=== PATIENT | female | born 1965 | race Caucasian/White ===

== ENCOUNTER 2016-08-30 08:05 | Emergency (ER) | payer OTHER ==
[~2016-08-30] VITALS: Ht 154.9 cm; Wt 74.4 kg
[~2016-08-30 08:05] MED LIST: ADVAIR 250-501 EACH INH; AVELOX400 M1 PO; AVELOX400 MG PO; CEPHALEXIN500 MG PO; CIPRO 500MG (E500 MG PO; CLEOCIN HCL300 M1 PO; DICYCLOMINE HCL10 MG PO; FEMHRT 0.5 MG-1 EACH PO; FLAG500 PO; FLEXERIL10 MG PO; HYDROCHLOROTHIA25 M1 PO; MONTELUKAST SOD10 M1 PO; MOXIFLOXACIN H400 M1 PO; NASONEX17 GM NASB; NORCO 325 MG-51 TAB PO; PANTOPRAZOLE SO40 M1 PO; PERCOCET 5-3251 EACH PO; PROBIOTIC FORMU1 CAP PO; TYLENOL TAB 32325 MG PO; VALACYCLOVIR500 M1 PO; VICODIN5-300 PO; ZOFRAN4 M1 SL
[2016-08-30 08:24] VITALS: BP 122/81
--- NOTE | 2016-08-30 08:42 | ED UPPER/LOWER EXTREMITY COMPL ---
History of Present Illness General Chief Complaint: Upper Extremity Problem Stated Complaint: RT ARM PAIN MO INJURY Source: patient, old records Exam Limitations: no limitations Vital Signs & Intake/Output Vital Signs & Intake/Output Vital Signs Date Time Temp Pulse Resp B/P Pulse O2 O2 Flow FiO2 Ox Delivery Rate 08/30 0847 98 08/30 0824 99.0 67 18 122/81 99 Room Air Allergies Coded Allergies: Penicillins (Severe, FACIAL SWELLING AND HIVES 08/30/16) ciprofloxacin (From Cipro) (Severe, BLISTERS IN MOUTH 08/30/16) metronidazole (Severe, BLISTERS IN MOUTH 08/30/16) nut - unspecified (Severe, LARYNGEAL EDEMA 08/30/16) peanut (Severe, ANAPHYLAXIS 08/30/16) amoxicillin (From Augmentin) (FACIAL SWELLING, HIVES 08/30/16) clavulanic acid (From Augmentin) (FACIAL SWELLING, HIVES 08/30/16) Reconcile Medications Fluticasone/Salmeterol (Advair 250-50 Diskus) 250 MCG-50 MCG/DOSE BLST.W.DEV 1 PUF INH BID ASTHMA (Reported) Hydrochlorothiazide 25 MG TABLET 1 TAB PO DAILY BP (Reported) Lactobacillus Acidophilus (Probiotic) 10 BILLION CELL CAPSULE 1 CAP PO DAILY DIVERTICULITIS (Reported) Methylprednisolone. (Medrol) 4 MG TAB.DS.PK 1 DP PO AD RADICULOPATHY 6 on day 1 then reduce by one tablet daily until gone Mometasone Furoate (Nasonex) 50 MCG SPRAY.PUMP 2 SPRAY NASB DAILY ALLERGIES ( Reported) Montelukast Sodium 10 MG TABLET 1 TAB PO DAILY ALLERGIES (Reported) Norethindrone AC-Eth Estradiol (Femhrt 0.5 MG-2.5 Mcg Tablet) 0.5 MG-2.5 MCG TABLET 1 TAB PO DAILY BC (Reported) Pantoprazole Sodium 40 MG TABLET.DR 1 TAB PO DAILY ACID REFLUX (Reported) Valacyclovir HCl (Valacyclovir) 500 MG TABLET 1 TAB PO Q48 HERPES (Reported) Triage Note: TRIAGE: PT TO ER C/C PINS/NEEDLE/NUMBING TO RT HAND WITH PAIN THAT SHOOTS UP TO UPPER ARM. ONSET LAST WEEK. CONSTANT SINCE ONSET THOUGH WAXES/WANES IN INTENSITY. NO KNOWN INJURY OR RECENT AGGRAVATING FACTOR, STATES SHE FELL ON THE ARM A YEAR AGO. TRIED NAPROXYN WITH NO RELIEF AND THEN WAS GIVEN TRAMADOL BY AT [facility] ON TUESDAY BUT DID NOT START TAKING IT UNTIL YESTERDAY BECAUSE "I WAS WORRIED ABOUT TAKING IT". HAS ONLY HAD TWO DOSES, LAST DOSE YESTERDAY AT 10 PM. STATES "IT DIDN'T HELP AT FIRST BUT EVENTUALLY IT DID HELP". STATES SHE WOKE UP WITH THE PAIN AGAIN THIS MORNING BUT INSTEAD OF TAKING ANOTHER DOSE OF THE MEDICATION CAME TO THE ER FOR EVAL. Triage Nurses Notes Reviewed? yes Onset: Gradual Duration: day(s): (5), constant, waxing and waning Timing: recent history Severity: mild Severity Numbers: 3 Pain/Injury Location: Right: Arm. Method of Injury: unknown No Modifying Factors: none Associated Symptoms: TINGLING HPI: 51-year-old female presents emergency room complaining of paresthesia to the right arm that began in her hand 5 days ago and has been radiating up into her right shoulder since then. She states she saw her primary care physician when the symptoms began as prescribed tramadol which she did not start taking until yesterday because she was scared of this medicine. She states she took 2 pills with relief of her symptoms. SHe states he symptoms recur at times-randomly. There is no radiation of pain into her back or neck no chest pain shortness of breath or pain with inspiration she denies any swelling to her arm. She is right-hand dominant. She is not taken anything for symptoms today. No history of similar episodes in the past she denies any left arm or bilateral leg symptoms. No rashes to her skin. No weakness in arm. Past History Travel History Traveled to [place] past 21 day No Medical History Any Pertinent Medical History? 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 No Review of Systems Review of Systems Constitutional: Reports: see HPI. All Other Systems: Reviewed and Negative Comments Review of systems: See HPI, All other systems negative. Constitutional, no chills no fever, no malaise HEENT: No visual changes no sore throat no congestion Cardiovascular: No chest pain , no palpitation Skin, no rashes, no change in skin Respiratory: No dyspnea no cough no sputum GI: No nausea no vomiting, no diarrhea : No dysuria Muscle skeletal: No joint pain, no back pain, no neck pain, Neurologic: No numbness no headache Psych: No stress Heme/endocrine: No bruising no bleeding Immunology: No lymphadenopathy Physical Exam Physical Exam General Appearance: well developed/nourished, no apparent distress, alert, awake Comments: Well-developed well-nourished patient in no apparent distress. HEENT: Atraumatic, extraocular motion intact Neck: Supple, FROM, Nontender Back: FROM Cardiovascular: Regular rate and rhythms no murmurs rubs or gallops, Respiratory: Chest nontender.There were no bony deformities, no asymmetry. No respiratory distress. Patient speaking in full complete sentences. Breath sounds clear to auscultation bilaterally: NO W/R/R Shoulder: Atraumatic/Stable. FROM . Elbow: Atraumatic/stable. FROM. No laxity Upper arm/Forearm: Atraumatic. Nontender. No edema, 5 out of 5 web application dev specialist strength noted to bilateral upper extremities Hand/Wrist: Atraumatic/stable. Skin intact. FROM Pulses: Normal/equal radial pulses bilaterally. Brisk cap refill Lower Extremities: full range of motion Neuro: Alert and oriented x3 Skin: Warm & dry;No appreciable rash on exposed skin Psych: Mood affect normal, normal memory normal judgment. Progress Differential Diagnosis: arterial insufficiency, cellulitis, contusion, DVT, sprain, tendon injury, NERVE IMPINGEMENT, SHINGLES Plan of Care: Patient clinically appears well, 5 out of 5 strength in upper extremities normal radial and brachial pulses, there is no swelling to the extremities. Advise close follow-up with her primary care physician, tramadol has helped with pain we'll treat patient with prednisone, I discussed with her need for postoperative primary care this week. I answered all her questions I had an extensive conversation regarding need for close follow up with their primary care physician this week as well as return precautions. I answered all of their questions, they feel comfortable with the plan and follow-up care. I discussed the medications that they will receive with the patient. I gave them signs and symptoms that could indicate an adverse reaction. I have advised them to limit their activities until they can see how they respond to the medication. Departure Departure Time of Disposition: 852 Disposition: HOME OR SELF CARE Condition: Stable Clinical Impression Primary Impression: Arm paresthesia, right Referrals: RYLAN MARINA APRN (PCP/Family) Additional Instructions: FOLLOW UP WITH YOUR PMD LATER THIS WEEK- CONTINUE TAKING THE TRAMADOL YOU HAVE FOR PAIN. MEDROL DOSE SHANE DISCUSSSED. THIS WAS SENT TO [facility]. HEATING PAD NEEDED. RETURN WITH ANY CONCERNS Departure Forms: Customer Survey General Discharge Information Prescriptions: Current Visit Scripts Methylprednisolone. (Medrol) 1 DP PO AD #1 DP 6 on day 1 then reduce by one tablet daily until gone Additional Instructions: FOLLOW UP WITH YOUR PMD LATER THIS WEEK- CONTINUE TAKING THE TRAMADOL YOU HAVE FOR PAIN. MEDROL DOSE SHANE DISCUSSSED. THIS WAS SENT TO [facility]. HEATING PAD NEEDED. RETURN WITH ANY CONCERNS Departure Forms: Customer Survey General Discharge Information Prescriptions: Current Visit Scripts Methylprednisolone. (Medrol) 1 DP PO AD #1 DP 6 on day 1 then reduce by one tablet daily until gone
[2016-08-30] MEDS ORDERED: PROBIOTIC1 EACH PO (08:54)
[2016-08-30] MEDS ORDERED: MEDROL4 M2 PO (08:57)
== END 2016-08-30 08:58 ==
LOC: ERH 08:05
DX: R20.2 Paresthesia of skin (principal)

== ENCOUNTER 2016-09-23 17:23 | Emergency (ER) | payer OTHER ==
[~2016-09-23] VITALS: Ht 154.9 cm; Wt 74.8 kg
[~2016-09-23 17:23] MED LIST changes: +MEDROL4 M2 PO; +PROBIOTIC1 EACH PO
[2016-09-23 17:31] VITALS: BP 142/88
--- NOTE | 2016-09-23 18:07 | ED HAND/WRIST INJURY COMPLAINT ---
History of Present Illness General Chief Complaint: Upper Extremity Injury Stated Complaint: RT ARM PAIN Source: patient Exam Limitations: no limitations Vital Signs & Intake/Output Vital Signs & Intake/Output Vital Signs Date Time Temp Pulse Resp B/P B/P Pulse O2 O2 Flow FiO2 Mean Ox Delivery Rate 09/23 1742 97 Room Air Room Air 09/23 1731 97.6 79 16 142/88 98 Room Air Allergies Coded Allergies: Penicillins (Severe, FACIAL SWELLING AND HIVES 08/30/16) ciprofloxacin (From Cipro) (Severe, BLISTERS IN MOUTH 08/30/16) metronidazole (Severe, BLISTERS IN MOUTH 08/30/16) nut - unspecified (Severe, LARYNGEAL EDEMA 08/30/16) peanut (Severe, ANAPHYLAXIS 08/30/16) amoxicillin (From Augmentin) (FACIAL SWELLING, HIVES 08/30/16) clavulanic acid (From Augmentin) (FACIAL SWELLING, HIVES 08/30/16) Reconcile Medications Fluticasone/Salmeterol (Advair 250-50 Diskus) 250 MCG-50 MCG/DOSE BLST.W.DEV 1 PUF INH BID ASTHMA (Reported) Hydrochlorothiazide 25 MG TABLET 1 TAB PO DAILY BP (Reported) Hydrocodone/Acetaminophen (Hydrocodon-Acetaminophen 5-325) 5 MG-325 MG TABLET 1-2 TAB PO Q4-6 PRN PRN pain Lactobacillus Acidophilus (Probiotic) 10 BILLION CELL CAPSULE 1 CAP PO DAILY DIVERTICULITIS (Reported) Methylprednisolone. (Medrol) 4 MG TAB.DS.PK 1 DP PO AD RADICULOPATHY 6 on day 1 then reduce by one tablet daily until gone Mometasone Furoate (Nasonex) 50 MCG SPRAY.PUMP 2 SPRAY NASB DAILY ALLERGIES ( Reported) Montelukast Sodium 10 MG TABLET 1 TAB PO DAILY ALLERGIES (Reported) Norethindrone AC-Eth Estradiol (Femhrt 0.5 MG-2.5 Mcg Tablet) 0.5 MG-2.5 MCG TABLET 1 TAB PO DAILY BC (Reported) Pantoprazole Sodium 40 MG TABLET.DR 1 TAB PO DAILY ACID REFLUX (Reported) Valacyclovir HCl (Valacyclovir) 500 MG TABLET 1 TAB PO Q48 HERPES (Reported) Triage Note: PT STATES SHE HAS A PINCHED NERVE IN HER RIGHT ARM INTO HER SHOULDER. PT REPORTS THIS HAS BEEN SINCE August AND WAS TAKING TRAMADOL AND NABUMETONE BUT PT STATES THE PAIN IS GETTING WORSE AND KEEPING HER UP AT NIGHT. Triage Nurses Notes Reviewed? yes Duration: week(s): (4), constant, getting worse Timing: recent history Severity: moderate, severe Pain/Injury Location: Right: Wrist, Hand. Method of Injury: unknown No Modifying Factors: none HPI: 51-year-old female comes into emergency room with complaints of right wrist pain and hand pain has been going on for the past month. Pain is sharp. Continuous. Patient has numbness and tingling to secondary to fourth fingers. Patient reports pain at the base of the second and third finger especially. Pain will shoot up into wrist and into elbow. Patient was seen here a month ago and prescribed steroids. Patient has been taking anti-inflammatories at home with minimal relief. Denies any falls or trauma. Denies any other associated symptoms. Past History Travel History Traveled to [place] past 21 day No Medical History Any Pertinent Medical History? 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 No Review of Systems Review of Systems Constitutional: Reports: no symptoms. EENTM: Reports: no symptoms. Respiratory: Reports: no symptoms. Cardiovascular: Reports: no symptoms. GI: Reports: no symptoms. Genitourinary: Reports: no symptoms. Musculoskeletal: Reports: see HPI. Skin: Reports: no symptoms. Neurological/Psychological: Reports: no symptoms. Hematologic/Endocrine: Reports: no symptoms. Immunologic/Allergic: Reports: no symptoms. All Other Systems: Reviewed and Negative Physical Exam Physical Exam General Appearance: well developed/nourished, mild distress Head: atraumatic Eyes: Bilateral: normal appearance, EOMI. Ears, Nose, Throat: normal ENT inspection, hearing grossly normal Neck: normal inspection, supple Cardiovascular/Respiratory: no respiratory distress Back: normal inspection Hand Left: normal inspection Hand Right: FOR RANGE OF MOTION, RADIAL PULSE 2+, GROSS SENSATION INTACT, PAIN OVER HER SECOND AND THIRD METACARPALS, POSITVE TINNELS SIGN Neurologic/Tendon: normal sensation, normal motor functions, normal tendon functions, responds to pain, no evidence tendon injury, no pulse deficit Skin: intact, normal color, warm/dry Lymphatic: no anterior cervical janett Progress Differential Diagnosis: cellulitis, dislocation, fracture, septic arthritis, sprain, tenosynovitis, CARPAL TUNNEL, Dupuytren s contracture Plan of Care: Orders Procedure Date/time Status Durable Medical Equipment 09/24 1811 Active Departure Departure Disposition: HOME OR SELF CARE Condition: Stable Clinical Impression Primary Impression: Wrist pain, right Referrals: RYLAN MARINA APRN (PCP/Family) DEANNA WEBSTER,MAE Additional Instructions: Use wrist splint. Take Vicodin for pain. Follow-up with plastic surgeon provided. Return if any concerns worsening symptoms. Please go over all results of today's visit with your primary care doctor. Contact your primary care doctor to let them know you were here in the emergency room. There may be nonspecific findings which may not be related to your visit today here in the emergency room but may require further evaluation and chronic monitoring by your primary care doctor. If you had a laceration today the chance of foreign body always remains. You should follow-up with your primary care doctor for recheck in 3-5 days for a wound check. If you had an x-ray done there is a chance that a fracture could have been missed on initial read and you should follow-up with your primary care doctor for repeat x-rays if symptoms persist. If your blood pressure was elevated here in the emergency room please have rechecked by her primary care doctor within the next 48 hours by your primary care doctor. If you were prescribed a narcotic here in the emergency room or any type of controlled substances you're not allowed to drive while taking this medication or operate any type of heavy machinery. Narcotics can make you feel lightheaded dizziness nausea and can cause constipation. You may need to pick and shovel worker a stool softener. Thank you for choosing [facility] emergency room. Please return to the emergency room immediately if you have any other concerns worsening of symptoms. Departure Forms: Customer Survey General Discharge Information Prescriptions: Current Visit Scripts Hydrocodone/Acetaminophen (Hydrocodon-Acetaminophen 5-325) 1-2 TAB PO Q4-6 PRN PRN pain #15 TAB Procedures Splinting Location: RIGHT WRIST Manual Alignment Performed: No Pre-Made Type: velcro Splint: wrist Splint Applied By: splint applied by me Pre-Proc Neuro Vasc Exam: normal Post-Proc Neuro Vasc Exam: normal
[2016-09-23] MEDS ORDERED: HYDROCODON-ACE1 EAC2 PO (18:11)
== END 2016-09-23 18:40 ==
LOC: ERH 17:23
DX: M25.531 Pain in right wrist (principal)

== ENCOUNTER 2017-10-02 20:03 | Emergency (ER) | payer OTHER ==
[~2017-10-02] VITALS: Ht 154.9 cm; Wt 74.8 kg
[~2017-10-02 20:03] MED LIST changes: +HYDROCODON-ACE1 EAC2 PO
--- NOTE | 2017-10-02 21:19 | RADIOLOGY REPORT ---
EXAMINATION: XR ANKLE, RIGHT CLINICAL INFORMATION: Right ankle pain. COMPARISON: Right ankle radiographs 10/28/2012. TECHNIQUE: AP, lateral, and mortise views of the right ankle. FINDINGS: No fracture or malalignment. No joint effusion. Small marginal osteophytes of the tibiotalar joint with a stable lucency of the medial talar dome measuring up to 5 to 6 mm suggestive of degenerative change or a small OCD. Minimal dorsal spurring of the navicular. No soft tissue abnormality. IMPRESSION: No acute osseous finding of the right ankle. Unchanged subchondral lucency of the medial talar dome suggestive of a small OCD. Mild degenerative arthritis of the ankle.
--- NOTE | 2017-10-02 21:43 | ED ANKLE/FOOT INJURY COMPLAINT ---
History of Present Illness General Chief Complaint: Lower Extremity Injury Stated Complaint: "RT ANKLE SWOLLEN, PAINFUL" Source: patient Exam Limitations: no limitations Vital Signs & Intake/Output Vital Signs & Intake/Output Vital Signs Date Time Temp Pulse Resp B/P B/P Pulse O2 O2 Flow FiO2 Mean Ox Delivery Rate 10/02 2144 98.2 88 18 120/72 97 Room Air 10/02 2009 98.1 90 18 115/77 97 Room Air ED Intake and Output 10/03 0000 10/02 1200 Intake Total 0 Output Total Balance 0 Intake, Oral 0 Patient 165 lb Weight Weight Reported by Patient Measurement Method Allergies Coded Allergies: Penicillins (Severe, FACIAL SWELLING AND HIVES 08/30/16) ciprofloxacin (From Cipro) (Severe, BLISTERS IN MOUTH 08/30/16) metronidazole (Severe, BLISTERS IN MOUTH 08/30/16) nut - unspecified (Severe, LARYNGEAL EDEMA 08/30/16) peanut (Severe, ANAPHYLAXIS 08/30/16) amoxicillin (From Augmentin) (FACIAL SWELLING, HIVES 08/30/16) clavulanic acid (From Augmentin) (FACIAL SWELLING, HIVES 08/30/16) Reconcile Medications Fluticasone/Salmeterol (Advair 250-50 Diskus) 250 MCG-50 MCG/DOSE BLST.W.DEV 1 PUF INH BID ASTHMA (Reported) Hydrochlorothiazide 25 MG TABLET 1 TAB PO DAILY BP (Reported) Hydrocodone/Acetaminophen (Hydrocodon-Acetaminophen 5-325) 5 MG-325 MG TABLET 1-2 TAB PO Q4-6 PRN PRN pain Lactobacillus Acidophilus (Probiotic) 10 BILLION CELL CAPSULE 1 CAP PO DAILY DIVERTICULITIS (Reported) Methylprednisolone. (Medrol) 4 MG TAB.DS.PK 1 DP PO AD RADICULOPATHY 6 on day 1 then reduce by one tablet daily until gone Mometasone Furoate (Nasonex) 50 MCG SPRAY.PUMP 2 SPRAY NASB DAILY ALLERGIES ( Reported) Montelukast Sodium 10 MG TABLET 1 TAB PO DAILY ALLERGIES (Reported) Norethindrone AC-Eth Estradiol (Femhrt 0.5 MG-2.5 Mcg Tablet) 0.5 MG-2.5 MCG TABLET 1 TAB PO DAILY BC (Reported) Pantoprazole Sodium 40 MG TABLET.DR 1 TAB PO DAILY ACID REFLUX (Reported) Valacyclovir HCl (Valacyclovir) 500 MG TABLET 1 TAB PO Q48 HERPES (Reported) Triage Note: PT FROM HOME C/O RIGHT ANKLE INJURY ON 09/19/17. PT STATES SHE WAS IN [place] AND WENT TO ENTER A RIDE AND PT HIT HER RIGHT KNEE BOARDING THE RIDE AND INJURY RIGHT ANKLE. PT ARRIVED WITH RIGHT ANKLE SWOLLEN. PT DENIES WEARING AN ROXANNE BANDAGE LATELY. PT STATES SHE TOOK 400MG MOTRIN PO AROUND 1200 TODAY. PT DECLINES MEDICATION IN TRIAGE AND WOULD LIKE TO WAIT UNTIL SEEN BY MD. PT IS AMBULATORY WITH STEADY GAIT INTO TRIAGE. PT HAS +2 PULSES. FULL ROM. PT HAS PAPERWORK FROM MD IN [place]. PT PROVIDED WITH ICE PACK FOR COMFORT. PTS VSS. NO ACUTE DISTRESS NOTED. Triage Nurses Notes Reviewed? yes Duration: week(s):, constant Timing: recent history Severity: mild, moderate Pain/Injury Location: Right: Ankle. Method of Injury: twisted No Modifying Factors: none HPI: 52-year-old female comes into the emergency room with complaints of right ankle pain and swelling. Patient reports that she twisted her ankle while in [place] on September 19. She is having some persistent pain since then and she comes in for further evaluation. (Dc Peace) Past History Travel History Traveled to [place] past 21 day No Medical History Any Pertinent Medical History? see below for history Neurological: NONE EENT: NONE Cardiovascular: NONE Respiratory: asthma Gastrointestinal: diverticulitis, irritable bowel syndrome Hepatic: NONE Renal: NONE Musculoskeletal: NONE Psychiatric: anxiety Endocrine: NONE Blood Disorders: NONE Cancer(s): NONE STRATIGRAPHER/Reproductive: NONE History of MRSA: No History of VRE: No History of CDIFF: No Tetanus Vaccine: 03/23/12 Surgical History Surgical History: , TONSILLECTOMY OOPHORECTOMY Psychosocial History Who do you live with Patient/Self Services at Home None What is your primary language [place] Tobacco Use: Never used Family History Family History, If Any: MOTHER FH: diverticulitis FH: HTN (hypertension) FHx: diabetes mellitus FATHER FH: heart disease Hx Contributory? No (Dc Peace) Review of Systems Review of Systems Constitutional: Reports: no symptoms. EENTM: Reports: no symptoms. Respiratory: Reports: no symptoms. Cardiovascular: Reports: no symptoms. GI: Reports: no symptoms. Genitourinary: Reports: no symptoms. Musculoskeletal: Reports: see HPI. Skin: Reports: no symptoms. Neurological/Psychological: Reports: no symptoms. Hematologic/Endocrine: Reports: no symptoms. Immunologic/Allergic: Reports: no symptoms. All Other Systems: Reviewed and Negative (Dc Peace) Physical Exam Physical Exam General Appearance: well developed/nourished, mild distress Head: atraumatic Eyes: Bilateral: normal appearance. Ears, Nose, Throat: normal ENT inspection, hearing grossly normal Neck: normal inspection Cardiovascular/Respiratory: no respiratory distress Back: normal inspection Leg/Knee/Thigh Left: normal inspection Leg/Knee/Thigh Right: normal inspection Ankle Right: soft tissue tenderness, swelling, limited range of motion Foot Right: normal inspection, normal range of motion Neuro/Vascular: normal motor function, normal sensation Tendon: normal tendon function Psychiatric: awake, alert, oriented x 3 Skin: intact, normal color, warm/dry (Dc Peace) Progress Differential Diagnosis: fracture, dislocation, sprain, contusion Plan of Care: Orders Procedure Date/time Status Durable Medical Equipment 10/02 2141 Active Diagnostic Imaging: Viewed by Me: Radiology Read. Discussed w/RAD: Radiology Read. Radiology Impression: PATIENT: LINDEN GIPSON PRESENT AGE: 52 PATIENT ACCOUNT NO: [id number] : 65 LOCATION: [facility] ORDERING PHYSICIAN: Zion Reynoso MD SERVICE DATE: 10/02/17 EXAM TYPE: RAD - XRY-ANKLE 3 OR MORE VIEWS R EXAMINATION: XR ANKLE, RIGHT CLINICAL INFORMATION: Right ankle pain. COMPARISON: Right ankle radiographs 10/28. TECHNIQUE: AP, lateral, and mortise views of the right ankle. FINDINGS: No fracture or malalignment. No joint effusion. Small marginal osteophytes of the tibiotalar joint with a stable lucency of the medial talar dome measuring up to 5 to 6 mm suggestive of degenerative change or a small OCD. Minimal dorsal spurring of the navicular. No soft tissue abnormality. IMPRESSION: No acute osseous finding of the right ankle. Unchanged subchondral lucency of the medial talar dome suggestive of a small OCD. Mild degenerative arthritis of the ankle. DICTATED BY: Chivo Gomez MD DATE/TIME DICTATED:10/02/172113 SUPERVISOR ENGINE ASSEMBLY:BRYN DATE/TIME TRANSCRIBED:10/02/172113 CONFIDENTIAL, DO NOT COPY WITHOUT APPROPRIATE AUTHORIZATION. <Electronically signed in Other Vendor System> SIGNED BY: Chivo Gomez MD 10/02/172118 (Dc Peace) Departure Departure Disposition: HOME OR SELF CARE Condition: Stable Clinical Impression Primary Impression: Right ankle sprain Referrals: Bonnie Stuart APRN (PCP/Family) Isai Urrutia MD Additional Instructions: Ice. Rest. Motrin for pain. Elevation. Follow-up with orthopedic doctor provided if not better in 3-5 days. If symptoms do not improve you'll require further evaluation with possible repeat x-rays as well as evaluation by measurement specialist. Sprains can last anywhere from days to weeks. No high impact running or jumping if you have an ankle sprain or any type of lower extremity sprain. Return to normal activity only after symptoms have resolved. Please go over all results of today's visit with your primary care doctor. Contact your primary care doctor to let them know you were here in the emergency room. There may be nonspecific findings which may not be related to your visit today here in the emergency room but may require further evaluation and chronic monitoring by your primary care doctor. If you had a laceration today the chance of foreign body always remains. You should follow-up with your primary care doctor for recheck in 3-5 days for a wound check. If you had an x-ray done there is a chance that a fracture could have been missed on initial read and you should follow-up with your primary care doctor for repeat x-rays if symptoms persist. If your blood pressure was elevated here in the emergency room please have rechecked by [facility] primary care doctor within the next 48. If you were prescribed a narcotic here in the emergency room or any type of controlled substances you're not allowed to drive while taking this medication or operate any type of heavy machinery. Narcotics can make you feel lightheaded dizziness nausea and can cause constipation. You may need to picking belt operator a stool softener. Thank you for choosing [facility] emergency room. Please return to the emergency room immediately if you have any other concerns worsening of symptoms. Departure Forms: Customer Survey General Discharge Information (Dc Peace) PA/DIRECTOR OF PREMIUM SEAT SALES Co-Sign Statement Statement: ED Attending supervision documentation- [] I saw and evaluated the patient. I have also reviewed all the pertinent lab results and diagnostic results. I agree with the findings and the plan of care as documented in the PA's/DIRECTOR OF PREMIUM SEAT SALES's documentation. [x] I have reviewed the ED Record and agree with the PA's/DIRECTOR OF PREMIUM SEAT SALES's documentation. [] Additions or exceptions (if any) to the PAs/DIRECTOR OF PREMIUM SEAT SALES's note and plan are summarized below: [] (Edgardo WEBSTER,Zion Ford) Procedures Splinting Location: right ankle Manual Alignment Performed: No Pre-Made Type: pneumatic boot Splint Applied By: splint applied by me Pre-Proc Neuro Vasc Exam: normal Post-Proc Neuro Vasc Exam: normal (Dc Peace)
[2017-10-02 21:45] VITALS: BP 120/72
== END 2017-10-02 22:18 ==
LOC: ERH 20:03
DX: S93.401A Sprain of unspecified ligament of right ankle, initial encounter (principal); X50.9XXA Other and unspecified overexertion or strenuous movements or postures, initial encounter; Y93.9 Activity, unspecified; Y92.831 Amusement park as the place of occurrence of the external cause
CPT/HCPCS: 73610-RT

== ENCOUNTER 2017-12-31 19:39 | Emergency (ER) | payer OTHER ==
--- NOTE | 2017-12-31 20:36 | ED UPPER/LOWER EXTREMITY COMPL ---
History of Present Illness General Chief Complaint: Foot or Ankle Injury Stated Complaint: "CRACKING AND POPPING IN RT ANKLE" PER PT Source: patient Exam Limitations: no limitations Vital Signs & Intake/Output Vital Signs & Intake/Output Vital Signs Date Time Temp Pulse Resp B/P B/P Pulse O2 O2 Flow FiO2 Mean Ox Delivery Rate 12/31 2044 98 Room Air 01/01 1948 98.4 88 18 142/85 96 Room Air Allergies Coded Allergies: Penicillins (Severe, FACIAL SWELLING AND HIVES 08/30/16) ciprofloxacin (From Cipro) (Severe, BLISTERS IN MOUTH 08/30/16) metronidazole (Severe, BLISTERS IN MOUTH 08/30/16) nut - unspecified (Severe, LARYNGEAL EDEMA 08/30/16) peanut (Severe, ANAPHYLAXIS 08/30/16) amoxicillin (From Augmentin) (FACIAL SWELLING, HIVES 08/30/16) clavulanic acid (From Augmentin) (FACIAL SWELLING, HIVES 08/30/16) Reconcile Medications Fluticasone/Salmeterol (Advair 250-50 Diskus) 250 MCG-50 MCG/DOSE BLST.W.DEV 1 PUF INH BID ASTHMA (Reported) Hydrochlorothiazide 25 MG TABLET 1 TAB PO DAILY BP (Reported) Hydrocodone/Acetaminophen (Hydrocodon-Acetaminophen 5-325) 5 MG-325 MG TABLET 1-2 TAB PO Q4-6 PRN PRN pain Lactobacillus Acidophilus (Probiotic) 10 BILLION CELL CAPSULE 1 CAP PO DAILY DIVERTICULITIS (Reported) Methylprednisolone. (Medrol) 4 MG TAB.DS.PK 1 DP PO AD RADICULOPATHY 6 on day 1 then reduce by one tablet daily until gone Mometasone Furoate (Nasonex) 50 MCG SPRAY.PUMP 2 SPRAY NASB DAILY ALLERGIES ( Reported) Montelukast Sodium 10 MG TABLET 1 TAB PO DAILY ALLERGIES (Reported) Norethindrone AC-Eth Estradiol (Femhrt 0.5 MG-2.5 Mcg Tablet) 0.5 MG-2.5 MCG TABLET 1 TAB PO DAILY BC (Reported) Pantoprazole Sodium 40 MG TABLET.DR 1 TAB PO DAILY ACID REFLUX (Reported) Valacyclovir HCl (Valacyclovir) 500 MG TABLET 1 TAB PO Q48 HERPES (Reported) Triage Note: PT TO TRIAGE C/O R ANKLE SWELLING, PAIN AND "POPPING." PER PT SPRAINED ANKLE IN SEPTEMBER, SAW ORTHOPEDIC AND HAS BEEN WEARING BRACE WHEN WALKING LONG DURATIONS, BUT THE PAST FEW DAYS PUTTING PRESSURE ON FOOT HAS BEEN WORSE. +CSM. PT DECLINED PAIN MED IN TRIAGE STATING IBUPROFEN HASN'T HELPED. Triage Nurses Notes Reviewed? yes Onset: Gradual Duration: intermittent Severity: moderate Severity Numbers: 5 HPI: Patient is a 52-year-old female who presents emergency room with concerns of chronic right ankle pain in which old records indicate that she was evaluated here at [facility] emergency room a few months ago for similar pain and symptoms in which she x-ray showed concerns of arthritis where she states that today she was marching in a band emulating more than usual patient moved her right ankle and noticed a popping sensation with worsening pain. Patient denies any knee or foot pain. Patient took ibuprofen prior to arrival Past History Travel History Traveled to [facility] past 21 day No Medical History Any Pertinent Medical History? see below for history Neurological: NONE EENT: NONE Cardiovascular: NONE Respiratory: asthma Gastrointestinal: diverticulitis, irritable bowel syndrome Hepatic: NONE Renal: NONE Musculoskeletal: NONE Psychiatric: anxiety Endocrine: NONE Blood Disorders: NONE Cancer(s): NONE DIRECTOR OF PUBLIC RELATIONS/Reproductive: NONE History of MRSA: No History of VRE: No History of CDIFF: No Tetanus Vaccine: 03/23/12 Surgical History Surgical History: , TONSILLECTOMY OOPHORECTOMY Psychosocial History Who do you live with Patient/Self Services at Home None What is your primary language Portuguese Tobacco Use: Never used ETOH Use: denies use Family History Family History, If Any: MOTHER FH: diverticulitis FH: HTN (hypertension) FHx: diabetes mellitus FATHER FH: heart disease Hx Contributory? No Review of Systems Review of Systems Constitutional: Reports: no symptoms. EENTM: Reports: no symptoms. Respiratory: Reports: no symptoms. Cardiovascular: Reports: no symptoms. Gastrointestinal/Abdominal: Reports: no symptoms. Genitourinary: Reports: no symptoms. Musculoskeletal: Reports: see HPI, joint pain. Skin: Reports: no symptoms. Neurological/Psychological: Reports: no symptoms. Hematologic/Endocrine: Reports: no symptoms. Immunological: Reports: no symptoms. All Other Systems: Reviewed and Negative Physical Exam Physical Exam General Appearance: no apparent distress, alert Head: atraumatic Eyes: Bilateral: normal appearance. Ears, Nose, Throat: hearing grossly normal Cardiovascular/Respiratory: no respiratory distress Peripheral Pulses: 2+ dorsalis pedis (R) Neurologic/Tendon: normal sensation, normal motor functions, normal tendon functions, responds to pain, no evidence tendon injury, no pulse deficit Skin: intact, normal color, warm/dry Comments: Right knee normal inspection nontender Right ankle noted generalized bilateral malleoli point Tenderness, full active range of motion Mild swelling Right foot normal inspection nontender pedal pulse +2 right lower extremity dermatomes intact Progress Differential Diagnosis: compartment syndrome, contusion, dislocation, DVT, fracture, gout, septic arthritis, sprain, tendon injury Plan of Care: Orders Procedure Date/time Status Durable Medical Equipment 01/01 2132 Active X-rays were unremarkable for osseous injury patient was neurovascularly intact to right lower extremity Jose Angel wrap and ankle Aircast stirrup was placed pre-and post neurovascular was intact Diagnostic Imaging: Viewed by Me: Radiology Read. Radiology Impression: no acute abnormality, no fracture Comments: PATIENT: LINDEN GIPSON PRESENT AGE: 52 PATIENT ACCOUNT NO: [id number] : 65 LOCATION: [facility] ORDERING PHYSICIAN: Jovan CORONA SERVICE DATE: 12/31/17 EXAM TYPE: RAD - XRY-ANKLE 3 OR MORE VIEWS R EXAMINATION: XR ANKLE, RIGHT CLINICAL INFORMATION: Pain. Assess for fracture. COMPARISON: Right ankle radiography 10/02/2017. TECHNIQUE: AP, lateral, and mortise views of the right ankle. FINDINGS: No fracture or dislocation. The ankle mortise is congruent. No widening of the tibiofibular syndesmosis. Suspected subcortical cyst formation along the medial aspect of the talar dome, unchanged. Mild plantar calcaneal spurring. Minimal distal Achilles enthesopathy. No evidence of large tibiotalar joint effusion. IMPRESSION: No acute fracture demonstrated. Nonacute findings as above. DICTATED BY: Lee Ornelas MD DATE/TIME DICTATED:12/31/172110 PASTER SUPERVISOR:BRYN DATE/TIME TRANSCRIBED:12/31/172110 Departure Departure Disposition: HOME OR SELF CARE Condition: Stable Clinical Impression Primary Impression: Right ankle pain Referrals: Bonnie Stuart APRN (PCP/Family) Jared Brooks MD Additional Instructions: As discussed continue [id number] ibuprofen for pain and inflammation begin to elevate her foot begin using the crutches until you can walk without pain begin using the Jose Angel wrap and the Aircast stirrup for support and stability. If symptoms worsen return to emergency room if no better in one week follow-up with orthopedic Dr. Brooks. Departure Forms: Customer Survey General Discharge Information
--- NOTE | 2017-12-31 21:24 | RADIOLOGY REPORT ---
EXAMINATION: XR ANKLE, RIGHT CLINICAL INFORMATION: Pain. Assess for fracture. COMPARISON: Right ankle radiography 10/02/2017. TECHNIQUE: AP, lateral, and mortise views of the right ankle. FINDINGS: No fracture or dislocation. The ankle mortise is congruent. No widening of the tibiofibular syndesmosis. Suspected subcortical cyst formation along the medial aspect of the talar dome, unchanged. Mild plantar calcaneal spurring. Minimal distal Achilles enthesopathy. No evidence of large tibiotalar joint effusion. IMPRESSION: No acute fracture demonstrated. Nonacute findings as above.
[2017-12-31 21:46] VITALS: BP 137/67
== END 2017-12-31 21:47 ==
LOC: ERH 19:39
DX: M25.571 Pain in right ankle and joints of right foot (principal)
CPT/HCPCS: 73610-RT

== ENCOUNTER 2018-01-17 09:30 | Emergency (ER) | payer OTHER ==
[~2018-01-17] VITALS: Ht 154.9 cm; Wt 74.8 kg
--- NOTE | 2018-01-17 10:04 | ED NECK/BACK PAIN COMPLAINT ---
History of Present Illness General Chief Complaint: Low Back Pain/Injury Stated Complaint: LBP Source: patient Exam Limitations: no limitations Vital Signs & Intake/Output Vital Signs & Intake/Output Vital Signs Date Time Temp Pulse Resp B/P B/P Pulse O2 O2 Flow FiO2 Mean Ox Delivery Rate 01/17 1200 97.5 70 20 130/78 99 Room Air 01/17 0937 97.1 63 20 137/81 100 Room Air Allergies Coded Allergies: Penicillins (Severe, FACIAL SWELLING AND HIVES 08/30/16) ciprofloxacin (From Cipro) (Severe, BLISTERS IN MOUTH 08/30/16) metronidazole (Severe, BLISTERS IN MOUTH 08/30/16) nut - unspecified (Severe, LARYNGEAL EDEMA 08/30/16) peanut (Severe, ANAPHYLAXIS 08/30/16) amoxicillin (From Augmentin) (FACIAL SWELLING, HIVES 08/30/16) clavulanic acid (From Augmentin) (FACIAL SWELLING, HIVES 08/30/16) Reconcile Medications Fluticasone/Salmeterol (Advair 250-50 Diskus) 250 MCG-50 MCG/DOSE BLST.W.DEV 1 PUF INH BID ASTHMA (Reported) Hydrochlorothiazide 25 MG TABLET 1 TAB PO DAILY BP (Reported) Hydrocodone/Acetaminophen (Hydrocodon-Acetaminophen 5-325) 5 MG-325 MG TABLET 1-2 TAB PO Q4-6 PRN PRN pain Ibuprofen 800 MG TABLET 1 TAB PO TID PAIN Lactobacillus Acidophilus (Probiotic) 10 BILLION CELL CAPSULE 1 CAP PO DAILY DIVERTICULITIS (Reported) Methylprednisolone. (Medrol) 4 MG TAB.DS.PK 1 DP PO AD RADICULOPATHY 6 on day 1 then reduce by one tablet daily until gone Mometasone Furoate (Nasonex) 50 MCG SPRAY.PUMP 2 SPRAY NASB DAILY ALLERGIES ( Reported) Montelukast Sodium 10 MG TABLET 1 TAB PO DAILY ALLERGIES (Reported) Norethindrone AC-Eth Estradiol (Femhrt 0.5 MG-2.5 Mcg Tablet) 0.5 MG-2.5 MCG TABLET 1 TAB PO DAILY BC (Reported) Pantoprazole Sodium 40 MG TABLET.DR 1 TAB PO DAILY ACID REFLUX (Reported) Tramadol HCl 50 MG TABLET 1 TAB PO BIDP PRN PAIN Valacyclovir HCl (Valacyclovir) 500 MG TABLET 1 TAB PO Q48 HERPES (Reported) Triage Note: PT TO ED C/O LOW BACK PAIN SINCE LAST TUESDAY. DENIES OBVIOUS INJURY/FALLING. WENT TO WALK IN AND WAS GIVEN MEDS, HAS BEEN TAKING WITH NO RELIEF. Triage Nurses Notes Reviewed? yes Onset: Abrupt Duration: day(s): (6), constant, continues in ED Timing: recent history Location: lumbar spine Loss of Consciousness: no loss of consciousness HPI: 52-year-old female comes into the emergency room complaints of low back pain. Patient reports it began about 6 days ago. She woke up with the pain. The pain will wrap around her low back. She denies any numbness or tingling. Denies any abdominal pain fever chills vomiting or urinary symptoms. She reports that she did noticed the pain wrapped around to her left anterior thigh/groin yesterday that has since gone away. Pain is worse with certain movements such as bending or twisting. (Dc Peace) Past History Travel History Traveled to [place] past 21 day No Medical History Any Pertinent Medical History? see below for history Neurological: NONE EENT: NONE Cardiovascular: NONE Respiratory: asthma Gastrointestinal: diverticulitis, irritable bowel syndrome Hepatic: NONE Renal: NONE Musculoskeletal: NONE Psychiatric: anxiety Endocrine: NONE Blood Disorders: NONE Cancer(s): NONE UNDER TRIMMER/Reproductive: NONE History of MRSA: No History of VRE: No History of CDIFF: No Tetanus Vaccine: 03/23/12 Surgical History Surgical History: , TONSILLECTOMY OOPHORECTOMY Psychosocial History Who do you live with Patient/Self Services at Home None What is your primary language Zimbabwean Tobacco Use: Never used ETOH Use: denies use Illicit Drug Use: denies illicit drug use Family History Family History, If Any: MOTHER FH: diverticulitis FH: HTN (hypertension) FHx: diabetes mellitus FATHER FH: heart disease Hx Contributory? No (Dc Peace) Review of Systems Review of Systems Constitutional: Reports: no symptoms. Eyes: Reports: no symptoms. Ears, Nose, Throat, Mouth: Reports: no symptoms. Respiratory: Reports: no symptoms. Cardiovascular: Reports: no symptoms. Gastrointestinal/Abdominal: Reports: no symptoms. Musculoskeletal: Reports: see HPI. Skin: Reports: no symptoms. Neurological/Psychological: Reports: no symptoms. All Other Systems: Reviewed and Negative (Dc Peace) Physical Exam Physical Exam General Appearance: well developed/nourished, mild distress Head: atraumatic Eyes: Bilateral: normal appearance. Ears, Nose, Throat, Mouth: hearing grossly normal, moist mucous membrane Neck: normal inspection Respiratory: no respiratory distress Gastrointestinal: soft, non-tender Back: normal inspection Extremities: normal range of motion Motor: Deficit L4 Right: No Deficit L4 Left: No Deficit L5 Right: No Deficit L5 Left: No Deficit S1 Right: No Deficit S1 Right: No Neurologic/Psych: awake, alert, oriented x 3, normal mood/affect Skin: intact, normal color, warm/dry Core Measures CVA/TIA Diagnosis: No (Romeo CORONA,Dc) Progress Differential Diagnosis: cauda equina syn, herniated disc, myofascial strain, sciatica Plan of Care: Orders Procedure Date/time Status XRY-LUMBOSACRAL SPINE 4 VIEWS 01/17 1003 Active Diagnostic Imaging: Viewed by Me: Radiology Read. Discussed w/RAD: Radiology Read. Radiology Impression: PATIENT: LINDEN GIPSON PRESENT AGE: 52 PATIENT ACCOUNT NO: [id number] : 65 LOCATION: [facility] ORDERING PHYSICIAN: Dc CORONA SERVICE DATE: 01/17/18 EXAM TYPE : RAD - XRY-LUMBOSACRAL SPINE 4 VIEWS EXAMINATION: XR LUMBOSACRAL SPINE CLINICAL INFORMATION: Low back pain. COMPARISON: CT abdomen and pelvis 11/08/2015. TECHNIQUE: 4 views of the lumbosacral spine were obtained. FINDINGS: Five lumbar -type vertebral bodies. Vestigial ribs T12. Minimal left convex scoliosis lumbar spine. Large transverse processes at L5. The right-sided transverse process makes a pseudarthrosis with the S1 vertebral body. Ogrc-io-fjdcgspy degenerative disc disease L5-S1. The remaining intervertebral disc spaces are preserved. Small anterior degenerative osteophytes throughout the lumbar spine. Sacroiliac joints are intact. IMPRESSION: 1. Xhai-pa-lwcxxqvz degenerative disc disease L5- S1. 2. Large transverse processes at L5 with a pseudoarthrosis on the right with the S1 vertebral body. This can be a source of chronic back pain. DICTATED BY: Analia Jett MD DATE/TIME DICTATED:01/17/181101 HAND SURGEON:BRYN DATE/TIME TRANSCRIBED:08/14/18 / 1102 CONFIDENTIAL, DO NOT COPY WITHOUT APPROPRIATE AUTHORIZATION. <Electronically signed in Other Vendor System> SIGNED BY: Analia Jett MD 01/17/18 1113 Comments: 01/17/2018 12:29:44 PM No motor deficits. Strength intact. Follow-up with PCP. Take medications as prescribed. Patient understands and agrees with plan of care. No abdominal pain. (Dc Peace) Departure Departure Disposition: HOME OR SELF CARE Condition: Stable Clinical Impression Primary Impression: Degenerative disc disease Referrals: Bonnie Stuart APRN (PCP/Family) Additional Instructions: Take ibuprofen and tramadol as prescribed. Follow-up with primary care doctor. Return if any concerns worsening of symptoms. Please go over all results of today's visit with your primary care doctor. Contact your primary care doctor to let them know you were here in the emergency room. There may be nonspecific findings which may not be related to your visit today here in the emergency room but may require further evaluation and chronic monitoring by your primary care doctor. If you had a laceration today the chance of foreign body always remains. You should follow-up with your primary care doctor for recheck in 3-5 days for a wound check. If you had an x-ray done there is a chance that a fracture could have been missed on initial read and you should follow-up with your primary care doctor for repeat x-rays if symptoms persist. If your blood pressure was elevated here in the emergency room please have rechecked by [facility] primary care doctor within the next 48. If you were prescribed a narcotic here in the emergency room or any type of controlled substances you're not allowed to drive while taking this medication or operate any type of heavy machinery. Narcotics can make you feel lightheaded dizziness nausea and can cause constipation. You may need to chicken picker a stool softener. Thank you for choosing [facility] emergency room. Please return to the emergency room immediately if you have any other concerns worsening of symptoms. Departure Forms: Customer Survey General Discharge Information Prescriptions: Current Visit Scripts Tramadol HCl 1 TAB PO BIDP PRN PAIN #10 TAB Ibuprofen 1 TAB PO TID #60 TAB (Dc Peace) PA/NOVELTY PRINTING MACHINE OPERATOR Co-Sign Statement Statement: ED Attending supervision documentation- [] I saw and evaluated the patient. I have also reviewed all the pertinent lab results and diagnostic results. I agree with the findings and the plan of care as documented in the PA's/NOVELTY PRINTING MACHINE OPERATOR's documentation. [X] I have reviewed the ED Record and agree with the PA's/NOVELTY PRINTING MACHINE OPERATOR's documentation. [] Additions or exceptions (if any) to the PAs/NOVELTY PRINTING MACHINE OPERATOR's note and plan are summarized below: [] (Taqueria WEBSTER,Mike Fraire)
--- NOTE | 2018-01-17 11:13 | RADIOLOGY REPORT ---
EXAMINATION: XR LUMBOSACRAL SPINE CLINICAL INFORMATION: Low back pain. COMPARISON: CT abdomen and pelvis 11/08/2015. TECHNIQUE: 4 views of the lumbosacral spine were obtained. FINDINGS: Five lumbar-type vertebral bodies. Vestigial ribs T12. Minimal left convex scoliosis lumbar spine. Large transverse processes at L5. The right-sided transverse process makes a pseudarthrosis with the S1 vertebral body. Rpme-jm-uccxrjey degenerative disc disease L5-S1. The remaining intervertebral disc spaces are preserved. Small anterior degenerative osteophytes throughout the lumbar spine. Sacroiliac joints are intact. IMPRESSION: 1. Rfkx-vd-lofkrewv degenerative disc disease L5-S1. 2. Large transverse processes at L5 with a pseudoarthrosis on the right with the S1 vertebral body. This can be a source of chronic back pain.
[2018-01-17] MEDS ORDERED: IBUPROFEN800 M1 PO (11:50)
[2018-01-17] MEDS ORDERED: TRAMADOL HCL50 M1 PO (11:50)
[2018-01-17 12:00] VITALS: BP 130/78
== END 2018-01-17 12:01 ==
LOC: ERH 09:30
DX: M51.36 Other intervertebral disc degeneration, lumbar region (principal)
CPT/HCPCS: 72110; 96372; J1885